=== PATIENT | male | born 1950 | race Caucasian/White ===

== ENCOUNTER 2017-02-27 11:49 | Day surgery (SDC) | payer BC ==
[~2017-02-27 11:49] MED LIST: ACETAMINOPHEN 1,000 MG/100 ML BTL IV ONE; CEFAZOLIN 2 Gram 2 GM/50 ML BAG IVPB ONE; FAMOTIDINE 20MG TABLET PO ONE; MECLIZINE 25 MG TABLET PO ONE; METOCLOPRAMIDE 10 MG TABLET PO ONE
[2017-02-27] MEDS ORDERED: FENTANYL PF 100MCG/2ML VIAL IV ONE (14:00)
[2017-02-27] MEDS ORDERED: BUPIVACAINE 0.5% W/EPI MPF 30 ML VIAL IVP ONE (14:00)
[2017-02-27] MEDS ORDERED: FLUMAZENIL 1MG/10ML VIAL IV ONE (14:00)
[2017-02-27] MEDS ORDERED: CEFAZOLIN 1G VIAL IM ONE (14:00)
[2017-02-27] MEDS ORDERED: MIDAZOLAM HCL 2MG/2ML VIAL IV ONE (14:00)
[2017-02-27] MEDS ORDERED: PROPOFOL 10 MG/ML VIAL IV ONE (14:00)
[2017-02-27] MEDS ORDERED: EPHEDRINE SULFATE 50 MG/ML ML IV ONE (14:00)
[2017-02-27] MEDS ORDERED: *PACU ONLY* KETAMINE HCL 10 MG/ML (20ML) VIAL IV ONE (14:00)
[2017-02-27] MEDS ORDERED: LIDOCAINE 2% MDV (20MG/ML) 20ML VIAL IV ONE (14:00)
[2017-02-27] MEDS ORDERED: LIDOCAINE 1% W/EPI 1:200,000 MPF 30ML SQ ONE (14:00)
[2017-02-27] MEDS ORDERED: ACETAMINOPHEN 325 MG TAB PO PRN ×2 (16:53)
[2017-02-27] MEDS ORDERED: HYDROCODONE/APAP 7.5/325MG TABLET PO PRN ×2 (16:53)
[2017-02-27] MEDS ORDERED: DIPHENHYDRAMINE HCL IV 50 MG/ML VIAL IVP PRN ×2 (16:53)
[2017-02-27] MEDS ORDERED: AL HYDROX/MAG HYDROX 30ML UD PO PRN (16:53)
[2017-02-27] MEDS ORDERED: METOCLOPRAMIDE 10 MG TABLET PO PRN (16:53)
[2017-02-27] MEDS ORDERED: SENNOSIDES/DOCUSATE SODIUM UD CAPSULE PO PRN ×2 (16:53)
[2017-02-27] MEDS ORDERED: HYDROMORPHONE HCL 2 MG/ML VIAL IM PRN (16:53)
[2017-02-27] MEDS ORDERED: TEMAZEPAM 15 MG CAPSULE PO PRN ×2 (16:53)
[2017-02-27] MEDS ORDERED: DIPHENHYDRAMINE HCL 25 MG CAPSULE PO PRN ×2 (16:53)
[2017-02-27] MEDS ORDERED: OXYCODONE/APAP 10MG-325MG TABLET PO PRN ×2 (16:53)
[2017-02-27] MEDS ORDERED: METOCLOPRAMIDE HCL 10 MG/2 ML VIAL IVP PRN (16:53)
[2017-02-27] MEDS ORDERED: HYDROMORPHONE HCL 1 MG/ML CPJ IM PRN (16:53)
[2017-02-27] MEDS: OXYCODONE SR 10 MG TAB.ER.12H PO SCH (18:23)
[2017-02-27] MEDS: OXYCODONE SR 20 MG TAB.ER.12H PO SCH (18:26)
[2017-02-27] MEDS: PANTOPRAZOLE SODIUM 40 MG TABLET PO SCH (21:40)
[2017-02-27] MEDS: CEFAZOLIN 2 Gram 2 GM/50 ML BAG IVPB SCH (21:41)
[2017-02-27] MEDS ORDERED: SIMVASTATIN 20 MG TABLET PO SCH (22:00)
[2017-02-27] MEDS ORDERED: 0.9 % SODIUM CHLORIDE 10ML SYR IVP SCH (22:00)
[2017-02-27] MEDS ORDERED: TAMSULOSIN HCL 0.4 MG CAP.ER.24H PO SCH (22:00)
[2017-02-27] MEDS ORDERED: ROPINIROLE HCL 1 MG TABLET PO SCH (22:00)
[2017-02-28] MEDS: PANTOPRAZOLE SODIUM 40 MG TABLET PO SCH (06:10)
[2017-02-28] MEDS: OXYCODONE SR 10 MG TAB.ER.12H PO SCH (06:10)
[2017-02-28] MEDS: OXYCODONE SR 20 MG TAB.ER.12H PO SCH (06:11)
[2017-02-28] MEDS: CEFAZOLIN 2 Gram 2 GM/50 ML BAG IVPB SCH (06:11)
--- NOTE | 2017-02-28 15:55 | Operative Note - [place] ---
DATE OF SURGERY: 02/27/17 PREOPERATIVE DIAGNOSES: 1. POST LUMBAR LAMINECTOMY SYNDROME, ICD-10 CODE = M96.1. 2. LUMBAR RADICULITIS, ICD-10 CODE = M54.16 AND M54.17. 3. POST CERVICAL LAMINECTOMY SYNDROME, ICD-10 CODE = M96.1. 4. CERVICAL RADICULITIS, ICD-10 CODE = M54.13. 5. NONFUNCTIONAL CERVICAL SPINAL CORD STIMULATOR. OPERATION: 1. FLUOROSCOPICALLY-GUIDED INCISION, SUBCUTANEOUS DISSECTION, AND REMOVAL OF TWO INDWELLING SPINAL CORD STIMULATORS IDENTIFIED [employer] OCTAPOLAR 8 ELECTRODES. 2. INCISION, SUBCUTANEOUS DISSECTION, AND REMOVAL OF RIGHT POSTERIOR GLUTEAL MARGIN GENERATOR FOR REMOVED STIMULATORS. 3. FLUOROSCOPICALLY-GUIDED EPIDURAL ACCESS T3-4. PLACEMENT OF SPINAL CORD STIMULATOR LEAD 1, [employer] 16 WITH 16 ELECTRODES POSITIONED LEFT C2. 4. FLUOROSCOPICALLY-GUIDED EPIDURAL ACCESS T4-5. PLACEMENT OF SPINAL CORD STIMULATOR LEAD 2, [employer] 16 WITH 16 ELECTRODES POSITIONED RIGHT C2. 5. COMPLEX PROGRAMMING LEAD 1 AND LEAD 2, OVER 20 MINUTES. LEAD 1, 20 MINUTES. LEAD 2. 6. INCISION, SUBCUTANEOUS DISSECTION, AND ANCHORING LEAD 1 AND LEAD 2 TO SUPRASPINOUS FASCIA USING [employer] L[employer]ING ANCHOR. 7. INCISION, SUBCUTANEOUS DISSECTION, AND REVISION OF RIGHT POSTERIOR GLUTEAL MARGIN POUCH FOR PLACEMENT OF GENERATOR IDENTIFIED [employer] PROGRAMMABLE RECHARGEABLE INTERNAL PULSE GENERATOR. 8. TUNNELING BETWEEN POUCHES, PLACEMENT OF EXTERNAL PORTION OF LEAD 1 AND LEAD 2 INTO GENERATOR POUCH. 9. ANCHORING GENERATOR TO POSTERIOR FASCIA USING NONABSORBABLE SUTURE. PLACEMENT OF LEADS INTO POUCH. CLOSURE OF PREVIOUSLY REMOVED INCISIONS WELL NEW INCISION FOR LEADS WITH VICRYL FOR FASCIA AND MARGARITA FOR SKIN. DRESSING PLACED. 10. EPIDURAL ACCESS LEFT T11-12. PLACEMENT OF SPINAL CORD STIMULATOR LEAD 3, [employer] 16 WITH 16 ELECTRODES POSITIONED LEFT, T7. 11. FLUOROSCOPICALLY-GUIDED PLACEMENT WITH ACCESS LEFT T12-L1. SPINAL CORD STIMULATOR LEAD 4, [employer] 16 WITH 16 ELECTRODES POSITIONED RIGHT, T7. 12. COMPLEX PROGRAMMING LEAD 3 AND COMPLEX PROGRAMMING LEAD 4; 20 MINUTES, LEAD 3 AND 20 MINUTES, LEAD 4. 13. INCISION, SUBCUTANEOUS DISSECTION, AND ANCHORING OF LEADS 3 AND 4 TO SUPRASPINOUS FASCIA USING [employer] ANCHOR, NONABSORBABLE SUTURE. 14. INCISION, SUBCUTANEOUS DISSECTION, AND CREATION OF A SUBCUTANEOUS POUCH AT LEFT POSTERIOR GLUTEAL MARGIN FOR PLACEMENT OF GENERATOR IDENTIFIED [employer] RECHARGEABLE. 15. TUNNELING BETWEEN POUCHES. PLACEMENT OF EXTERNAL PORTION OF LEAD3 AND LEAD 4 INTO GENERATOR POUCH, EACH LEAD INTERFACED TO GENERATOR. 16. PLACEMENT OF GENERATOR INTO POUCH SECURED WITH NONABSORBABLE SUTURE. PLACEMENT OF LEADS INTO POUCH. CLOSURE OF INCISIONS VICRYL FOR FASCIA AND MARGARITA FOR SKIN. APPROPRIATE DRESSING PLACED. 17. COMPLEX RECOVERY ROOM PROGRAMMING INTERNAL GENERATOR 20 MINUTES, LEFT. COMPLEX PROGRAMMING INTERNAL GENERATOR 20 MINUTES, RIGHT. SURGEON: BRIGIDA LAM D.O. ANESTHESIA: LOCAL SEDATION. ANESTHESIA PROVIDER: MARLINE CASAS CRNA. INDICATION: This patient presents with a history of postcervical laminectomy and postlumbar laminectomy radiculitis. A nonfunctional spinal cord stimulator with internal generator, two leads, placed in 2010. He is here for removal and replacement of cervical stimulator along with after the successful lumbar stimulator trial and failure of all other therapies, placement of a lumbar stimulator two leads and generator. PROCEDURE: Intravenous line, vital sign monitoring, IV sedation, prepped and draped in sterile technique, patient position prone. Sterile prep, sterile technique. The incisional sites for the two indwelling leads identified, infiltrated, and incision made and subcutaneous dissection was conducted to the leads. The leads were then removed intact. The extension towards the right posterior gluteal margin generator for the leads was then infiltrated, incision made, and subcutaneous dissection at the posterior gluteal margin right was made. The generator for the lead was removed intact. The extension removed intact. Antibiotic irrigation. Bovie for hemostasis. The incisions were then closed Vicryl for fascia and margarita for skin. At L3-4 and L4-5 on the right, skin infiltrated then two separate Epidural needles with [id number] was used to gain entry into the epidural space. At T3-4, spinal cord stimulator lead 1, a [employer] 16 with 16 electrodes, positioned left of midline C2. With the epidural access at T4-5, spinal cord simulator lead 2, also a [employer] 16 with 16 electrodes, positioned right of the midline at C2. Complex programming of lead 1, over 20 minutes followed by complex programming of lead 2, over 20 minutes resulting in patterns of stimulation across the patient's neck, shoulders, and arms. Patient indicating we were in all of the areas of the pain. He was given the option to implant or remove; he opted to implant. He was re-sedated. The skin above and below the needles infiltrated, incision made, and subcutaneous dissection was conducted to the supraspinous fascia. The needles were removed and each lead was anchored to the supraspinous fascia with a [employer] [place]. At the right posterior gluteal margin pouch previously opened, the site was revised to accommodate the new generator identified as a [employer] Programmable Rechargeable. A tunneling tool was then used to carry the two leads into the generator pouch and each lead interfaced with the generator. Antibiotic irrigation. Bovie for hemostasis. The generator was placed into the pouch and secured with nonabsorbable suture. The incisions for the removal of the two leads as well as the placement of the two new leads and the generator were all closed Vicryl for fascia and margarita for skin. Moving into the lumbar region, the interspace 11-12 and 12-1 identified and infiltrated with local then two epidural access needles were used to gain entry into the space. At T11-12, spinal cord stimulator lead 3, a [employer] 16 with 16 electrodes, positioned left of midline T7. With the epidural access at T12-L1, spinal cord simulator lead 4, a [employer] 16 with 16 electrodes, positioned right of the midline, T7. Complex programming of lead 3, over 20 minutes followed by complex programming of lead 4 , over 20 minutes resulting in patterns of stimulation across the back and into the legs. The patient indicating we were in all of the appropriate areas. He was given the option to implant or remove; he opted to implant. He was re- sedated. The skin above and below the needles infiltrated, incision made, and subcutaneous dissection was conducted to the supraspinous fascia. The needles were removed and each lead was anchored to the supraspinous fascia with a [employer] [place]. At the left posterior gluteal margin; a site picked by the patient for the generator, skin infiltrated, incision made, and subcutaneous dissection was conducted to form a site of suitable size and depth for the generator. Antibiotic irrigation. Bovie for hemostasis. A tunneling tool was then used to carry the two leads into the generator pouch and each lead was interfaced with the generator. The generator was then secured to the posterior fascia with nonabsorbable suture. With the generator into the pouch and the two leads placed into their own pouch, the incisions were closed Vicryl for fascia and margarita for skin. Appropriate dressings were placed over all incisions. He was transported to the Recovery Room stable, awake, and alert. No side-effects noted. Complex programming in the Recovery Room over 20 minutes with both generators was then performed re-establishing stimulation and pain control to all of the appropriate places. He will be kept overnight for observation. DISCHARGE INSTRUCTIONS: 1. Site to remain clean and dry. No showering or bathing in any way that would disrupt dressings. 2. Standard medications resumed including Levaquin, the antibiotic, 500 mg a day for 14 days. 3. The incisions will stay dry. He will be seen in 5-7 days; that appointment will be made by the office, contact the patient at home at which point we will look at his incisions, remove the margarita, and clear him for activities. He will continue with his antibiotics until directed to stop after 14 days. All other instructions provided, numbers to contact, problems given. He was then prepared for discharge. cc: Dr. Shanks JOB NUMBER: [id number] [facility]
--- NOTE | 2017-03-01 16:10 | RADIOLOGY REPORT ---
EXAM: SPINE, 1 VIEW HISTORY: PAIN PUMP PLACEMENT. TECHNIQUE: Single AP view of the lumbar spine was performed. FINDINGS: Pain pump tip is located at the C2 and T8 levels. IMPRESSION: PAIN PUMP TIPS ARE LOCATED AT T2 AND T8 LEVELS. JOB NUMBER: [id number] [facility]
== END 2017-02-28 09:41 | disposition home or self-care (01) ==
LOC: SUR 11:49 → MEDSURG 17:01 → SUR 02-28 09:41
PROVIDERS: ATTEND Pain Medicine Interventional Pain Medicine
DX: T85.890A Other specified complication of nervous system prosthetic devices, implants and grafts, initial encounter (principal); M96.1 Postlaminectomy syndrome, not elsewhere classified; M54.16 Radiculopathy, lumbar region; M54.17 Radiculopathy, lumbosacral region; M54.13 Radiculopathy, cervicothoracic region
CPT/HCPCS: 72020; 84132; 95972; C1820; C1883; J0690